=== PATIENT | female | born 1990 | race Caucasian/White ===

== ENCOUNTER 2016-08-26 14:02 | Emergency (ER) | payer OTHER ==
[~2016-08-26] VITALS: Wt 95.0 kg
--- NOTE | 2016-08-26 16:02 | ERD ---
ER Documentation Chief Complaint Date/Time DATE: 08/26/16 TIME: 16:00 Chief Complaint chin swelling for the past few hours. no trauma no sob HPI This 26-year-old female noticed some bruising on her chin noticed today. Denies any history of trauma. She also has some mild tenderness in her anterior neck denies fevers, sore throat, shortness breath, bleeding from other sites in her body such as nose, urine or bowels. The skin lesion is non- painful and has no itching. ROS All systems reviewed and are negative except as per history of present illness. Allergies Allergies: Coded Allergies: No Known Allergy (Unverified , 08/26/16) PMhx/Soc Medical and Surgical Hx: pt denies Medical Hx, pt denies Surgical Hx Hx Alcohol Use: No Hx Substance Use: No Hx Tobacco Use: No Physical Exam Vitals Vital Signs Date Time Temp Pulse Resp B/P Pulse Ox O2 Delivery O2 Flow Rate FiO2 08/26/16 14:05 98.8 92 18 160/81 98 Physical Exam Const: [] Alert, [id number] per Head: Atraumatic Eyes: Normal Conjunctiva ENT: Normal External Ears, Nose and Mouth.. Airway is patent with no tenderness appreciated. No lymphadenitis. Neck: Full range of motion..~ No meningismus. Resp: Clear to auscultation bilaterally Cardio: Regular rate and rhythm, no murmurs Abd: Soft, non tender, non distended. Normal bowel sounds Skin: No petechiae or rashes. There is a small area of petechia or ecchymosis underneath the chin which is nontender not raised. There is no deformities. Back: No midline or flank tenderness Ext: No cyanosis, or edema Neur: Awake and alert Psych: Normal Mood and Affect Procedures/MDM Patient presents with some petechia or ecchymosis on her chin of uncertain etiology. I suspect is due to occult trauma. There is no signs or symptoms to suggest blood dyscrasias, life-threatening rashes, airway obstruction or emergent conditions. Patient is requesting an x-ray but I do not think these will be fruitful nor any laboratory tests currently. She discharged home with further observation and instructed to return for fevers, worsening symptoms, new or worsening symptoms or with primary care doctor, otherwise allow occult trauma to resolve. Departure Diagnosis: Primary Impression: Traumatic petechiae Condition: Stable Patient Instructions: Contusions (Bruises) Additional Instructions: Patient appear to be broken blood vessels suspect from unaware trauma. Recommend further observation. Recheck for fevers, worsening rashes, new or worsening symptoms with primary care doctor. ASHU ROSARIO MD Aug 26, 2016 16:02
[2016-08-26 16:14] VITALS: TEMP 98.2
== END 2016-08-26 16:14 | disposition home or self-care (01) ==
LOC: FTE 14:02
DX: R23.3 Spontaneous ecchymoses (principal); X58.XXXA Exposure to other specified factors, initial encounter; Y92.9 Unspecified place or not applicable
CPT/HCPCS: 99282